=== PATIENT | female | born 1950 | race African-American/Black ===

== ENCOUNTER → 2016-07-11 | Outpatient (CLI) | payer OTHER, MEDICARE ==
--- NOTE | 2016-07-11 09:05 | RAD ---
DATE: 07/11/2016 EXAM: DIGITAL SCREEN BILAT W/CAD HISTORY: 65-year-old female presents for screening mammography. COMPARISON: 02/22/2015 and 02/12/2014 TECHNIQUE: Full field digital craniocaudal and mediolateral oblique views of both breasts are obtained. This study was interpreted with the benefit of Computerized Aided Detection (CAD). FINDINGS: Breast parenchymal composition: Level A. The breast parenchyma shows scattered fibroglandular densities. There is stable circumscribed nodular densities within the right breast. There are benign calcifications within both breasts, including a few tiny clustered calcifications. There is focal asymmetry within the slightly lateral posterior aspect of the left breast which is not seen in both projections, consistent with summation artifact. There is no new suspicious mass, calcification or architectural distortion within either breast. IMPRESSION: No new suspicious finding within either breast. BI-RADS CATEGORY: 2 BENIGN FINDING RECOMMENDED FOLLOW-UP: 12M 12 MONTH FOLLOW-UP PQRS compliance statement: Patient information was entered into a reminder system with a target due date of 1 year for the next mammogram. Mammography is a sensitive method for finding small breast cancers, but it does not detect them all and is not a substitute for careful clinical examination. A negative mammogram does not negate a clinically suspicious finding and should not result in delay in biopsying a clinically suspicious abnormality. "Our facility is accredited by the [employer] Mammography Program."
== END | disposition home or self-care (01) ==
LOC: MAMMO 07:59
PROVIDERS: ATTEND Family Medicine
DX: Z12.31 Encounter for screening mammogram for malignant neoplasm of breast (principal)
CPT/HCPCS: G0202; 77067

== ENCOUNTER → 2016-07-11 | Outpatient (CLI) | payer OTHER ==
[2016-07-11 08:58] LABS: ALBUMIN 3.4 g/dL (3.4-5.0); ALBUMIN/GLOBULIN RATIO 0.7 (1.0-1.7); CALCIUM 9.4 mg/dL (8.5-10.1); CHOLESTEROL/HDL RATIO 3.4; CREATININE 1.2 mg/dL (0.6-1.0); GFR 54.2; POTASSIUM 3.5 mmol/L (3.5-5.1); TOTAL BILIRUBIN 0.4 mg/dL (0.2-1.0)
== END | disposition home or self-care (01) ==
LOC: LAB 08:20
PROVIDERS: ATTEND Family Medicine
DX: Z00.00 Encounter for general adult medical examination without abnormal findings (principal)
CPT/HCPCS: 36415; 80053; 80061; 83036

== ENCOUNTER → 2017-10-05 | Outpatient (CLI) | payer OTHER, MEDICARE | END | disposition home or self-care (01) | LOC: MAMMO 08:16 | DX: Z12.31 Encounter for screening mammogram for malignant neoplasm of breast (principal) | CPT/HCPCS: 77063; 77067 ==

== ENCOUNTER → 2017-10-19 | Outpatient (CLI) | payer OTHER, MEDICARE | END | disposition home or self-care (01) | LOC: US 07:41 | DX: R92.8 Other abnormal and inconclusive findings on diagnostic imaging of breast (principal) | CPT/HCPCS: 76641 ==

== ENCOUNTER → 2017-11-22 | Outpatient (CLI) | payer OTHER, MEDICARE ==
[~2017-11-22] MED LIST: LIDOCAINE 2%/EPI 1:100,000 20 ML VIAL. IJ ONE
--- NOTE | 2017-11-26 09:07 | PATHOLOGY ---
[facility] Accession Number: [id number] . 01 Material submitted: . LT BREAST TISSUE . 01 Clinical history: . Left breast mass. . 02 Diagnosis: Breast tissue, left breast mass, needle biopsies: - Confluent dense stromal fibrosis. (JPM:11/23/2017) QMS/11/23/2017 . 02 Comment: There is no evidence of malignancy. . 02 Electronically signed: . Dru Hollingsworth MD, Pathologist NPI- [id number] . 01 Gross description: . Received in formalin labeled "[place], [place], left breast" is a 2.5 x 2.0 x 0.3 cm aggregate of qoh-hifcf-gfvnil-rob lobulated cylindrical cores of soft tissue. The specimen is submitted entirely in cassettes A1-A3. The specimen is removed from the patient at 0930, placed in formalin at 0935, and removed from formalin at 2340 on November 22, 2017. ([facility] [place]; 11/22/2017) SYC/SYC . 02 Pathologist provided ICD-10: N60.32 . 02 CPT . 909096 Performed at: 01 [facility] [address], [place] [id number] MD Fly Hurley MD Phone: [phone] Performed at: 02 [facility] [address], [place] [id number] MD Dru Hollingsworth MD Phone: [phone]
--- NOTE | 2017-12-03 11:24 | RAD ---
Ultrasound-guided left breast biopsy, 11/22/2017: History: Suspicious breast nodule Previous studies demonstrated a suspicious abnormality at the 2:00 location. Under local anesthesia, aseptic conditions and sonographic guidance the [employer] biopsy instrument was passed into this process via a lateral approach. Multiple 12-gauge vacuum-assisted core samples were obtained. A biopsy marker was then deposited at the biopsy site. The biopsy instrument was removed and hemostasis obtained. Two-view postprocedural digital mammograms were then obtained to document position of the biopsy marker. The patient tolerated the procedure well and left the department in good condition. The subsequent pathology report indicated the presence of dense stromal fibrosis without evidence of malignancy. Mammographic surveillance consisting of 3-D left mammography in 6 months and bilateral mammography at one year is suggested
== END | disposition home or self-care (01) ==
LOC: US 08:27
PROVIDERS: ATTEND Surgery
DX: N60.32 Fibrosclerosis of left breast (principal); E78.00 Pure hypercholesterolemia, unspecified; I10 Essential (primary) hypertension; Z87.39 Personal history of other diseases of the musculoskeletal system and connective tissue; Z90.710 Acquired absence of both cervix and uterus; Z96.652 Presence of left artificial knee joint; Z79.899 Other long term (current) drug therapy; Z98.890 Other specified postprocedural states
CPT/HCPCS: 19085; 76942; 77065; 88305; C1713

== ENCOUNTER → 2021-07-18 | Outpatient (CLI) | payer MEDICARE ==
--- NOTE | 2021-07-18 15:15 | RAD ---
Bilateral digital screening 2-D and 3-D (tomosynthesis) mammogram: Reason for examination: Routine screening. Comparison is made to previous study dated Bilateral mammograms in CC and oblique projections were obtained with 2-D imaging and 3-D tomosynthes is imaging and reviewed on the workstation. Interpretation was made with the benefit of CAD. Findings: Breast density: Category C. The breasts are heterogeneously dense, which may obscure small masses. There are no new suspicious masses, malignant appearing calcifications or architectural distortion. There are is a focal asymmetry containing biopsy marker in the 2:00 position of the left breast at an terior depth that is unchanged. This has been previously demonstrated represent stromal fibrosis. The re are small oval circumscribed masses in both breasts likely due to cysts. Impression: No evidence of malignancy. ASSESSMENT: BI-RADS 2. Benign findings. Recommendations: Routine screening mammograms. This patient's information has been entered into a reminder system for the patient to be notified wit h the results of her examination and a target date for the next mammogram. Your patient's mammogram demonstrates that she has dense breast tissue (breast density category C or D), which could hide abnormalities, and if she has other risk factors for breast cancer that have bee n identified, she might benefit from supplemental screening tests that may be suggested by you as her ordering physician. Dense breast tissue, in and of itself, is a relatively common condition. Therefo re, this information is not provided to cause undue concern, but rather to raise your awareness and t o promote discussion with your patient regarding the presence of other risk factors, in addition to d ense breast tissue. Electronically signed by: Rose Grant MD (07/18/2021 3:12 PM) [id number]
== END ==
LOC: MAMMO 09:15
PROVIDERS: ATTEND Family Medicine
DX: Z12.31 Encounter for screening mammogram for malignant neoplasm of breast (principal)
CPT/HCPCS: 77063; 77067